=== PATIENT | male | born 1945 ===

== ENCOUNTER 2018-03-23 13:21 | Outpatient (CLI) | payer MEDICARE ==
[~2018-03-23] VITALS: Ht 167.6 cm; Wt 72.6 kg
[2018-03-23] MEDS ORDERED: Succinylcholine 20mg/ml 10ml vial ONE (13:22)
[2018-03-23] MEDS ORDERED: Ketorolac 60mg Inj IM ONE (13:22)
[2018-03-23] MEDS ORDERED: NS 500ML ONE (13:22)
[2018-03-23] MEDS ORDERED: Midazolam 2mg/2ml Inj ONE (13:22)
== END 2018-03-23 15:21 | disposition home or self-care (01) ==
LOC: ECT 13:21
DX: F33.2 Major depressive disorder, recurrent severe without psychotic features (principal); F41.1 Generalized anxiety disorder; H17.9 Unspecified corneal scar and opacity; I10 Essential (primary) hypertension; E78.5 Hyperlipidemia, unspecified; I25.2 Old myocardial infarction
CPT/HCPCS: J0330; J2250; J7040

== ENCOUNTER 2018-03-26 06:59 | Outpatient (RCR) | payer MEDICARE ==
[~2018-03-26] VITALS: Ht 167.6 cm; Wt 72.6 kg
[2018-03-26 10:01] VITALS: BP 172/92
[2018-03-26] MEDS ORDERED: Ketorolac 60mg Inj IM PRN (10:14)
[2018-03-26] MEDS ORDERED: Midazolam 2mg/2ml Inj IVP PRN (10:14)
[2018-03-26 10:15] VITALS: BP 174/70
[2018-03-26 10:20] VITALS: BP 158/62
[2018-03-26 10:25] VITALS: BP 154/73
[2018-03-26 10:30] VITALS: BP 151/69
[2018-03-26 12:11] VITALS: BP 168/78
[2018-03-31] MEDS ORDERED: Ketorolac 60mg Inj IM ONE (08:00)
[2018-03-31] MEDS ORDERED: NS 500ML ONE (08:00)
[2018-03-31] MEDS ORDERED: Methohexital Sodium Syr 100mg/10ml IVP ONE (08:00)
[2018-03-31] MEDS ORDERED: Succinylcholine 20mg/ml 10ml vial ONE (08:00)
[2018-03-31 09:24] VITALS: BP 170/86
[2018-03-31 09:40] VITALS: BP 137/58
[2018-03-31 09:45] VITALS: BP 122/54
[2018-03-31 09:50] VITALS: BP 113/55
[2018-03-31 09:55] VITALS: BP 115/54
== END 2018-04-01 | disposition home or self-care (01) ==
LOC: ECT 06:59
DX: F33.2 Major depressive disorder, recurrent severe without psychotic features (principal); F41.1 Generalized anxiety disorder; I25.2 Old myocardial infarction; I25.10 Atherosclerotic heart disease of native coronary artery without angina pectoris; I10 Essential (primary) hypertension; E78.5 Hyperlipidemia, unspecified
CPT/HCPCS: 90870; J0330; J3360; J7040

== ENCOUNTER 2018-04-02 06:13 | Outpatient (RCR) | payer MEDICARE ==
[~2018-04-02] VITALS: Ht 167.6 cm; Wt 72.6 kg
[2018-04-02] MEDS ORDERED: Ketorolac 60mg Inj IM ONE ×2 (06:14)
[2018-04-02] MEDS ORDERED: NS 500ML ONE ×2 (06:14)
[2018-04-02] MEDS ORDERED: Methohexital Sodium Syr 100mg/10ml IVP ONE (06:14)
[2018-04-02] MEDS ORDERED: Succinylcholine 20mg/ml 10ml vial ONE ×2 (06:14)
[2018-04-02 08:36] VITALS: BP 137/78
[2018-04-02 08:50] VITALS: BP 186/88
[2018-04-02 08:55] VITALS: BP 180/83
[2018-04-02 09:00] VITALS: BP 149/67
[2018-04-02 09:05] VITALS: BP 155/60
[2018-04-05 08:36] VITALS: BP 127/74
[2018-04-05 08:55] VITALS: BP 148/52
[2018-04-05 09:00] VITALS: BP 126/58
[2018-04-05 09:05] VITALS: BP 132/65
[2018-04-05 09:10] VITALS: BP 134/61
[2018-04-07] MEDS ORDERED: Succinylcholine 20mg/ml 10ml vial ONE (06:00)
[2018-04-07] MEDS ORDERED: Ketorolac 60mg Inj IM ONE (06:00)
[2018-04-07] MEDS ORDERED: Methohexital Sodium Syr 100mg/10ml IVP ONE (06:00)
[2018-04-07] MEDS ORDERED: NS 500ML ONE (06:00)
[2018-04-07 08:44] VITALS: BP 142/85
[2018-04-07 09:00] VITALS: BP 161/76
[2018-04-07 09:05] VITALS: BP 144/86
[2018-04-07 09:10] VITALS: BP 148/94
[2018-04-07 09:15] VITALS: BP 144/96
[2018-04-09 08:49] VITALS: BP 122/74
[2018-04-09] MEDS ORDERED: Methohexital Sodium Syr 100mg/10ml IVP ONE (09:00)
[2018-04-09] MEDS ORDERED: NS 500ML ONE (09:00)
[2018-04-09] MEDS ORDERED: Succinylcholine 20mg/ml 10ml vial ONE (09:00)
[2018-04-09] MEDS ORDERED: Ketorolac 60mg Inj IM ONE (09:00)
[2018-04-09 09:05] VITALS: BP 123/57
[2018-04-09 09:10] VITALS: BP 122/61
[2018-04-09 09:15] VITALS: BP 119/57
[2018-04-09 09:20] VITALS: BP 126/69
[2018-04-12] MEDS ORDERED: Ketorolac 60mg Inj IM ONE (07:00)
[2018-04-12] MEDS ORDERED: Methohexital Sodium Syr 100mg/10ml IVP ONE (07:00)
[2018-04-12] MEDS ORDERED: NS 500ML ONE (07:00)
[2018-04-12] MEDS ORDERED: Succinylcholine 20mg/ml 10ml vial ONE (07:00)
[2018-04-12 08:36] VITALS: BP 124/76
[2018-04-12 08:55] VITALS: BP 142/58
[2018-04-12 09:00] VITALS: BP 123/58
[2018-04-12 09:05] VITALS: BP 132/54
[2018-04-12 09:10] VITALS: BP 128/60
[2018-04-14] MEDS ORDERED: Methohexital Sodium Syr 100mg/10ml IVP ONE (06:00)
[2018-04-14] MEDS ORDERED: Succinylcholine 20mg/ml 10ml vial ONE (06:00)
[2018-04-14] MEDS ORDERED: NS 500ML ONE (06:00)
[2018-04-14] MEDS ORDERED: Ketorolac 60mg Inj IM ONE (06:00)
[2018-04-14 08:20] VITALS: BP 128/76
[2018-04-14 08:35] VITALS: BP 133/67
[2018-04-14 08:40] VITALS: BP 134/64
[2018-04-14 08:45] VITALS: BP 138/81
[2018-04-14 08:50] VITALS: BP 139/73
[2018-04-19] MEDS ORDERED: Succinylcholine 20mg/ml 10ml vial ONE (06:00)
[2018-04-19] MEDS ORDERED: Ketorolac 60mg Inj IM ONE (06:00)
[2018-04-19] MEDS ORDERED: Methohexital Sodium Syr 100mg/10ml IVP ONE (06:00)
[2018-04-19] MEDS ORDERED: NS 500ML ONE (06:00)
[2018-04-19 08:32] VITALS: BP 124/69
[2018-04-19 08:50] VITALS: BP 160/68
[2018-04-19 08:55] VITALS: BP 140/55
[2018-04-19 09:00] VITALS: BP 141/65
[2018-04-19 09:05] VITALS: BP 139/76
[2018-04-28] MEDS ORDERED: Succinylcholine 20mg/ml 10ml vial ONE (06:00)
[2018-04-28] MEDS ORDERED: Ketorolac 60mg Inj IM ONE (06:00)
[2018-04-28] MEDS ORDERED: NS 500ML ONE (06:00)
[2018-04-28] MEDS ORDERED: Methohexital Sodium Syr 100mg/10ml IVP ONE (06:00)
[2018-04-28 08:04] VITALS: BP 141/77
[2018-04-28 08:20] VITALS: BP 137/56
[2018-04-28 08:25] VITALS: BP 136/56
[2018-04-28 08:30] VITALS: BP 152/105
[2018-04-28 08:35] VITALS: BP 160/67
== END 2018-04-29 | disposition home or self-care (01) ==
LOC: ECT 06:13
DX: F33.2 Major depressive disorder, recurrent severe without psychotic features (principal)
CPT/HCPCS: 90870; J0330; J3360; J7040

== ENCOUNTER 2018-05-17 06:05 | Outpatient (RCR) | payer MEDICARE ==
[~2018-05-17] VITALS: Ht 167.6 cm; Wt 72.6 kg
[2018-05-17] MEDS ORDERED: Succinylcholine 20mg/ml 10ml vial ONE (06:06)
[2018-05-17] MEDS ORDERED: Methohexital Sodium Syr 100mg/10ml IVP ONE (06:06)
[2018-05-17] MEDS ORDERED: NS 500ML ONE (06:06)
[2018-05-17] MEDS ORDERED: Ketorolac 60mg Inj IM ONE (06:06)
[2018-05-17 08:52] VITALS: BP 128/74
[2018-05-17 09:05] VITALS: BP 151/67
[2018-05-17 09:10] VITALS: BP 149/65
[2018-05-17 09:15] VITALS: BP 128/59
[2018-05-17 09:20] VITALS: BP 131/55
[2018-05-17 09:25] VITALS: BP 131/61
== END 2018-05-30 | disposition home or self-care (01) ==
LOC: ECT 06:05
DX: F33.2 Major depressive disorder, recurrent severe without psychotic features (principal)
CPT/HCPCS: 90870; J0330; J3360; J7040

== ENCOUNTER 2018-06-07 05:39 | Outpatient (RCR) | payer MEDICARE ==
[~2018-06-07] VITALS: Ht 167.6 cm; Wt 72.6 kg
[2018-06-07] MEDS ORDERED: Ketorolac 60mg Inj IM ONE (05:40)
[2018-06-07] MEDS ORDERED: Methohexital Sodium Syr 100mg/10ml IVP ONE (05:40)
[2018-06-07] MEDS ORDERED: NS 500ML ONE (05:40)
[2018-06-07] MEDS ORDERED: Succinylcholine 20mg/ml 10ml vial ONE (05:40)
[2018-06-07 08:16] VITALS: BP 128/70
[2018-06-07 08:35] VITALS: BP 147/61
[2018-06-07 08:40] VITALS: BP 169/68
[2018-06-07 08:45] VITALS: BP 156/73
[2018-06-07 08:50] VITALS: BP 148/59
== END 2018-06-29 | disposition home or self-care (01) ==
LOC: ECT 05:39
DX: F33.2 Major depressive disorder, recurrent severe without psychotic features (principal)
CPT/HCPCS: 90870; J0330; J3360; J7040

== ENCOUNTER 2018-07-05 04:33 | Outpatient (RCR) | payer MEDICARE ==
[~2018-07-05] VITALS: Ht 30.5 cm; Wt 0.5 kg
[2018-07-05] MEDS ORDERED: Ketorolac 60mg Inj IM ONE (04:34)
[2018-07-05] MEDS ORDERED: NS 500ML ONE (04:34)
[2018-07-05] MEDS ORDERED: Succinylcholine 20mg/ml 10ml vial ONE (04:34)
[2018-07-05] MEDS ORDERED: Methohexital Sodium Syr 100mg/10ml IVP ONE (04:34)
[2018-07-05 08:24] VITALS: BP 141/80
[2018-07-05 08:35] VITALS: BP 175/71
[2018-07-05 08:40] VITALS: BP 143/67
[2018-07-05 08:45] VITALS: BP 158/70
[2018-07-05 08:50] VITALS: BP 171/87
== END 2018-07-30 | disposition home or self-care (01) ==
LOC: ECT 04:33
DX: F33.2 Major depressive disorder, recurrent severe without psychotic features (principal)
CPT/HCPCS: 90870; J0330; J3360; J7040

== ENCOUNTER 2018-08-02 05:01 | Outpatient (RCR) | payer MEDICARE ==
[~2018-08-02] VITALS: Ht 167.6 cm; Wt 72.6 kg
[2018-08-02] MEDS ORDERED: Methohexital Sodium Syr 100mg/10ml IVP ONE (05:02)
[2018-08-02] MEDS ORDERED: Ketorolac 60mg Inj IM ONE (05:02)
[2018-08-02] MEDS ORDERED: NS 500ML ONE (05:02)
[2018-08-02] MEDS ORDERED: Succinylcholine 20mg/ml 10ml vial ONE (05:02)
[2018-08-02 08:02] VITALS: BP 147/81
[2018-08-02 08:16] VITALS: BP 158/67
[2018-08-02 08:21] VITALS: BP 143/66
[2018-08-02 08:26] VITALS: BP 146/72
[2018-08-02 08:31] VITALS: BP 166/77
[2018-08-25 07:12] VITALS: BP 143/84
[2018-08-25 07:25] VITALS: BP 135/50
[2018-08-25 07:30] VITALS: BP 149/68
[2018-08-25 07:35] VITALS: BP 165/85
[2018-08-25 07:40] VITALS: BP 138/74
[2018-08-25] MEDS ORDERED: Ketorolac 60mg Inj IM ONE (08:00)
[2018-08-25] MEDS ORDERED: Succinylcholine 20mg/ml 10ml vial ONE (08:00)
[2018-08-25] MEDS ORDERED: NS 500ML ONE (08:00)
[2018-08-25] MEDS ORDERED: Methohexital Sodium Syr 100mg/10ml IVP ONE (08:00)
== END 2018-08-29 | disposition home or self-care (01) ==
LOC: ECT 05:01
DX: F33.2 Major depressive disorder, recurrent severe without psychotic features (principal)
CPT/HCPCS: 90870; J0330; J3360; J7040

== ENCOUNTER 2018-09-13 04:40 | Outpatient (RCR) | payer MEDICARE ==
[~2018-09-13] VITALS: Ht 167.6 cm; Wt 72.6 kg
[2018-09-13] MEDS ORDERED: Succinylcholine 20mg/ml 10ml vial ONE (04:41)
[2018-09-13] MEDS ORDERED: NS 500ML ONE (04:41)
[2018-09-13] MEDS ORDERED: Ketorolac 60mg Inj IM ONE (04:41)
[2018-09-13] MEDS ORDERED: Methohexital Sodium Syr 100mg/10ml IVP ONE (04:41)
[2018-09-13 07:51] VITALS: BP 136/78
[2018-09-13 08:10] VITALS: BP_SYST 133; BP_SYST 137; BP_DIAS 49; BP_DIAS 54
[2018-09-13 08:15] VITALS: BP 137/54
[2018-09-13 08:20] VITALS: BP 148/73
== END 2018-09-29 | disposition home or self-care (01) ==
LOC: ECT 04:40
DX: F33.2 Major depressive disorder, recurrent severe without psychotic features (principal)
CPT/HCPCS: 90870; J0330; J3360; J7040

== ENCOUNTER 2018-10-06 05:17 | Outpatient (RCR) | payer MEDICARE ==
[~2018-10-06] VITALS: Ht 167.6 cm; Wt 72.6 kg
[2018-10-06] MEDS ORDERED: Methohexital Sodium Syr 100mg/10ml IVP ONE (06:00)
[2018-10-06] MEDS ORDERED: Succinylcholine 20mg/ml 10ml vial ONE (06:00)
[2018-10-06] MEDS ORDERED: Ketorolac 60mg Inj IM ONE (06:00)
[2018-10-06] MEDS ORDERED: NS 500ML ONE (06:00)
[2018-10-06 08:45] VITALS: BP 138/84
[2018-10-06 09:00] VITALS: BP 138/70
[2018-10-06 09:05] VITALS: BP 131/68
[2018-10-06 09:10] VITALS: BP 160/66
[2018-10-06 09:15] VITALS: BP 161/98
== END 2018-10-30 | disposition home or self-care (01) ==
LOC: ECT 05:17
DX: F33.2 Major depressive disorder, recurrent severe without psychotic features (principal)
CPT/HCPCS: 90870; J0330; J3360; J7040

== ENCOUNTER 2018-11-03 08:18 | Outpatient (RCR) | payer MEDICARE ==
[~2018-11-03] VITALS: Ht 167.6 cm; Wt 72.6 kg
[2018-11-03] MEDS ORDERED: Succinylcholine 20mg/ml 10ml vial ONE (08:19)
[2018-11-03] MEDS ORDERED: Ketorolac 60mg Inj IM ONE (08:19)
[2018-11-03] MEDS ORDERED: Methohexital Sodium Syr 100mg/10ml IVP ONE (08:19)
[2018-11-03] MEDS ORDERED: NS 500ML ONE (08:19)
[2018-11-03 09:42] VITALS: BP 169/84
[2018-11-03 09:55] VITALS: BP 171/77
[2018-11-03 10:00] VITALS: BP 149/56
[2018-11-03 10:05] VITALS: BP 132/59
[2018-11-03 10:10] VITALS: BP 140/65
[2018-11-29] MEDS ORDERED: Ketorolac 30mg Inj ONE (06:00)
[2018-11-29] MEDS ORDERED: Methohexital Sodium Syr 100mg/10ml IVP ONE (06:00)
[2018-11-29] MEDS ORDERED: Succinylcholine 20mg/ml 10ml vial ONE (06:00)
[2018-11-29] MEDS ORDERED: NS 500ML ONE (06:00)
[2018-11-29 08:16] VITALS: BP 150/78
[2018-11-29 08:28] VITALS: BP 153/61
[2018-11-29 08:33] VITALS: BP 151/69
[2018-11-29 08:38] VITALS: BP 148/75
[2018-11-29 08:43] VITALS: BP 140/76
== END 2018-11-29 | disposition home or self-care (01) ==
LOC: ECT 08:18
DX: F33.2 Major depressive disorder, recurrent severe without psychotic features (principal)
CPT/HCPCS: 90870; J0330; J1885; J3360; J7040

== ENCOUNTER 2018-12-27 04:29 | Outpatient (RCR) | payer MEDICARE ==
[~2018-12-27] VITALS: Ht 167.6 cm; Wt 72.6 kg
[2018-12-27] MEDS ORDERED: Succinylcholine 20mg/ml 10ml vial ONE (06:00)
[2018-12-27] MEDS ORDERED: Ketorolac 30mg Inj ONE (06:00)
[2018-12-27] MEDS ORDERED: NS 500ML ONE (06:00)
[2018-12-27] MEDS ORDERED: Methohexital Sodium Syr 100mg/10ml IVP ONE (06:00)
[2018-12-27 07:51] VITALS: BP 146/81
[2018-12-27 08:03] VITALS: BP 162/61
[2018-12-27 08:08] VITALS: BP 133/57
[2018-12-27 08:13] VITALS: BP 159/70
[2018-12-27 08:18] VITALS: BP 152/67
== END 2018-12-30 | disposition home or self-care (01) ==
LOC: ECT 04:29
DX: F33.2 Major depressive disorder, recurrent severe without psychotic features (principal)
CPT/HCPCS: 90870; J0330; J1885; J3360; J7040

== ENCOUNTER 2019-01-21 06:23 | Outpatient (RCR) | payer MEDICARE ==
[~2019-01-21] VITALS: Ht 167.6 cm; Wt 72.6 kg
[~2019-01-21 06:23] MED LIST: Ketorolac 30mg Inj ONE; Methohexital Sodium Syr 100mg/10ml IVP ONE; NS 500ML ONE; Succinylcholine 20mg/ml 10ml vial ONE
[2019-01-21 08:19] VITALS: BP 149/77
[2019-01-21 08:30] VITALS: BP 153/56
[2019-01-21 08:35] VITALS: BP 132/77
[2019-01-21 08:40] VITALS: BP 131/68
[2019-01-21 08:45] VITALS: BP 155/57
== END 2019-01-29 | disposition home or self-care (01) ==
LOC: ECT 06:23
DX: F33.2 Major depressive disorder, recurrent severe without psychotic features (principal)
CPT/HCPCS: 90870; J0330; J1885; J3360; J7040

== ENCOUNTER 2019-02-21 06:42 | Outpatient (RCR) | payer MEDICARE ==
[~2019-02-21] VITALS: Ht 30.5 cm; Wt 0.5 kg
[2019-02-21] MEDS ORDERED: Methohexital Sodium 500mg Vial IVP ONE (06:43)
[2019-02-21] MEDS ORDERED: NS 500ML ONE (06:43)
[2019-02-21] MEDS ORDERED: Succinylcholine 20mg/ml 10ml vial ONE (06:43)
[2019-02-21] MEDS ORDERED: Ketorolac 60mg Inj IM ONE (06:43)
[2019-02-21 08:55] VITALS: BP 135/80
[2019-02-21 09:10] VITALS: BP 146/66
[2019-02-21 09:15] VITALS: BP 141/90
[2019-02-21 09:20] VITALS: BP 151/86
[2019-02-21 09:25] VITALS: BP 159/81
== END 2019-03-01 | disposition home or self-care (01) ==
LOC: ECT 06:42
DX: F33.2 Major depressive disorder, recurrent severe without psychotic features (principal)
CPT/HCPCS: 90870; J3490